=== PATIENT | female | born 1985 | race Caucasian/White ===

== ENCOUNTER 2020-12-08 06:15 | Emergency (ER) | payer SELFPAY ==
--- NOTE | ~2020-12-08 | CT_ITS ---
EXAMINATION: CT abdomen pelvis wo con DATE: 12/08/2020 07:44 INDICATION: Right flank pain TECHNIQUE: Computed tomography (CT) of the abdomen and pelvis was performed without intravenous contr ast. The dose-length product was 1611.21 mGy-cm. Automated exposure control and iterative reconstruct ion technique were employed. COMPARISON: None. FINDINGS: Lung bases are unremarkable. Heart size normal. No significant pleural or pericardial effus ion. There is mild nonspecific asymmetric perinephric stranding on the right. There is mild prominence of the right renal pelvis with periureteral stranding. There is a possible 1 mm distal right ureteral st one, image 173. The liver, spleen, pancreas, adrenal glands and left kidney are unremarkable. Small fat-containing um bilical hernia. The bladder is present. No significant vascular abnormality. No lymphadenopathy. IMPRESSION: 1. Asymmetric mild right perinephric and periureteral stranding. Possible small 1 mm distal right ure teral stone, image 173. Cannot exclude ascending urinary tract infection/pyelonephritis. Reviewed, dictated and finalized at location A. SFER MAN IMPRESSION: 1. Asymmetric mild right perinephric and periureteral stranding. Possible small 1 mm distal right ureteral stone, image 173. Cannot exclude ascending urinary tract infection/pyelonephritis.
[2020-12-08 06:17] VITALS: BP 169/104; PULSE 102; RESP 16; TEMP 36.8; O2SAT 100
[2020-12-08] MEDS: KETOROLAC 30 MG/ML VIAL (*BKC) IV PUSH (06:46)
[2020-12-08] MEDS: ONDANSETRON INJ 4 MG/2 ML VIAL IV PUSH (06:46)
[2020-12-08] MEDS: SODIUM CHLORIDE 0.9% IV 1,000 ML 999 ML IV CONT (06:46)
[2020-12-08 07:03] LABS: Basophils Absolute Auto 0.1 K/mm3 (0.0-0.1); Basophils Percent Auto 0.5 % (0.2-1.2); Eosinophils Absolute Auto 0.2 K/mm3 (0-0.3); Eosinophils Percent Auto 2.2 % (0-4.4); Hematocrit 41.1 % (37.0-47.0); Hemoglobin 13.3 g/dL (12.0-15.0); Immature Granulocyte Absolute 0.09 K/mm3 (0.00-0.031); Immature Granulocyte Percent A 0.9 % (0-0.5); Lymphocytes Absolute Auto 2.28 K/mm3 (0.9-3.2); Lymphocytes Percent Auto 23.5 % (18.3-44.2); Mean Corpuscular HGB Conc 32.4 g/dl (32-36); Mean Corpuscular Hemoglobin 30.4 pg (26-34); Mean Corpuscular Volume 93.8 fl (80-100); Monocytes Absolute Auto 0.4 K/mm3 (0.1-0.6); Monocytes Percent Auto 4.1 % (2.6-8.5); Neutrophils Absolute Auto 6.7 K/mm3 (1.3-6.7); Neutrophils Percent Auto 68.8 % (45.5-73.1); Platelet Count Result 244 k/mm3 (150-375); Red Blood Count 4.38 M/mm3 (4.2-5.4); Red Cell Distribution Width 13.4 % (11.5-14.5); White Blood Count 9.7 K/mm3 (4.5-10.0)
[2020-12-08 07:09] LABS: Add Urine Microscopic? YES; Appearance Urine Cloudy (Clear); Bacteria Urine Trace /hpf; Bilirubin Urine Negative (Negative); Blood Urine 3+ (Negative); Calcium Oxalate Crystals Urine Many /hpf; Color Urine Yellow (Yellow); Glucose Urine UA Negative (Negative); Ketones Urine Negative (Negative); Leukocyte Esterase Ur 1+ LEU/UL (Negative); Mucus Urine Few /lpf; Nitrate Urine Negative (Negative); Protein Urine 1+ mg/dL (Negative); Specific Grav Ur 1.034 (1.001-1.035); Squamous Epithelial Cell Urine Many /hpf (Few)
--- NOTE | 2020-12-08 07:12 | ED.GENADULT ---
HPI - General Adult General Chief complaint: Back Pain/Injury Stated complaint: back pain Time Seen by Provider: 12/08/20 07:05 Source: patient Limitations: no limitations History of Present Illness HPI narrative: Patient is a 35 y/o female complaining of right back pain starting approximately 3 hours ago when she woke up. She describes her pain as sharp and burning. Her pain radiates to right lower abdomen. She rates her pain as 9/10 initially and 7/10 right now. She states that pain medication she received upon arrival helped with her pain. She has nausea and vomiting, but no diarrhea. She also feels like she can't urinate. Related Data Allergies Allergy/AdvReac Type Severity Reaction Status Date / Time No Known Allergies Allergy Mild Verified 12/08/20 06:39 Review of Systems Constitutional: Constitutional: Denies chills, Denies fever(s), Denies headache(s) and Denies weakness Eyes: Eyes: Denies blurry vision ENT: Denies headache(s) and Denies neck pain Cardiovascular: Cardiovascular: Denies chest pain and Denies dyspnea Respiratory: Respiratory: Denies cough and Denies dyspnea Gastrointestinal: Gastrointestinal: Denies abdominal pain, Denies diarrhea, Reports nausea and Reports vomiting Genitourinary: Genitourinary: Reports as per HPI, Denies hematuria, Reports urinary frequency, Denies dysuria and Reports flank pain Musculoskeletal: Musculoskeletal: Denies back pain and Denies neck pain Neurologic: Denies headache(s) and Denies weakness PMF Family History Family History Father Family history of malignant neoplasm of stomach, Onset Age: 52 Family history of malignant neoplasm of esophagus, Onset Age: 52 Grandparent Carcinoma of colon, Onset Age: 80 Social History Social History Smoking status: Never smoker Alcohol intake: current Exam Const: General: no acute distress and well developed Orientation/consciousness: oriented to person, oriented to place, oriented to time and patient oriented x3 HENMT: Head: normocephalic Ears: external ears normal General nose exam: Normal external nose present Eyes: General: appearance normal, both eyes and all related structures Conjunctivae: conjunctivae normal Neck: Neck: normal visual inspection and full ROM Chest: Chest palpation & inspection: normal inspection of the chest and no tenderness Resp: Effort & Inspection: normal respiratory effort Auscultation: clear to auscultation bilaterally Cardio: Rate: regular rate Rhythm: regular rhythm GI: GI Palp: No abdominal tenderness and Yes Soft to palpation Skin: General skin exam: normal color and turgor normal Neuro: General: oriented to person, oriented to place, oriented to time and patient oriented x3 Cognition (Neuro): normal cognition Extrem: General: normal to inspection, full ROM and no pedal edema Psych: Appearance: grossly normal Mental Status: mental status grossly normal Affect: normal affect Course Vital Signs Vital signs: Vital Signs Temperature 36.8 C 12/08/20 06:17 Pulse Rate 102 H 12/08/20 06:17 Respiratory Rate 16 12/08/20 06:17 Blood Pressure 169/104 H 12/08/20 06:17 Pulse Oximetry 100 12/08/20 06:17 Temperature 36.8 C 12/08/20 06:17 Pulse Rate 84 12/08/20 09:25 Respiratory Rate 20 12/08/20 09:25 Blood Pressure 136/89 12/08/20 09:25 Pulse Oximetry 100 12/08/20 09:25 Medical Decision Making Vital Signs Vital Signs: Vital Signs Temperature 36.8 C 12/08/20 06:17 Pulse Rate 102 H 12/08/20 06:17 Respiratory Rate 16 12/08/20 06:17 Blood Pressure 169/104 H 12/08/20 06:17 Pulse Oximetry 100 12/08/20 06:17 Temperature 36.8 C 12/08/20 06:17 Pulse Rate 84 12/08/20 09:25 Respiratory Rate 20 12/08/20 09:25 Blood Pressure 136/89 12/08/20 09:25 Pulse Oximetry 100 12/08/20 09:25 Lab Data Result shaun
[2020-12-08 07:16] LABS: Alanine Aminotransferase 31 U/L (4-35); Albumin Level 4.2 g/dL (3.5-5.1); Alkaline Phosphatase 58 U/L (38-126); Anion Gap 9 mmol/L (8-16); Aspartate Amino Transferase 20 U/L (14-36); Bilirubin,Total 0.7 mg/dL (0.2-1.3); Blood Urea Nitrogen 15 mg/dL (7-17); Calcium 9.5 mg/dL (8.4-10.2); Carbon Dioxide 25 mmol/L (22-30); Chloride 105 mmol/L (98-107); Estimated CRCL calculation 98 ml/min; Estimated Glomerular Filt Rate > 60; Glucose 149 mg/dL (65-105); Potassium 4.3 mmol/L (3.4-5.0); Sodium 139 mmol/L (137-145)
[2020-12-08] MEDS: MORPHINE SULFATE (*CRX) 4 MG/ML INJ IV PUSH ×2 (07:17→08:40)
[2020-12-08 08:02] VITALS: BP 136/89; PULSE 84; RESP 20; O2SAT 100
[2020-12-08 09:25] VITALS: BP 136/89; PULSE 84; RESP 20; O2SAT 100
== END 2020-12-08 09:30 | disposition home or self-care (01) ==
PROVIDERS: Emergency Medicine; Emergency Provider Emergency Medicine; PCP Family Medicine
DX: N20.1 Calculus of ureter (principal)
CPT/HCPCS: 36415; 74176; 80053; 81001; 81025; 85025; 87086; 87088; 96361; 96374; 96375; 96376; 99284; J1885; J2270; J2405; J7030

== ENCOUNTER 2021-05-31 13:56 | Inpatient (IN) | payer OTHER, SELFPAY ==
--- NOTE | ~2021-05-31 | XR_ITS ---
EXAMINATION: XR chest 1V portable INDICATION: Shortness of breath, COVID 19 positive TECHNIQUE: Portable AP chest at 1413 hours COMPARISON: None available FINDINGS: There are diffuse interstitial and airspace opacities throughout all lung zones. No pleural effusion or pneumothorax is identified. The cardiomediastinal silhouette is normal. The visualized o sseous structures are unremarkable IMPRESSION: 1. Diffuse lung disease, consistent with pulmonary edema and/or pneumonia. Reviewed, dictated and finalized at location A.
--- NOTE | 2021-05-31 13:57 | ECG_ITS ---
Measurements Intervals Virgil Rate: 89 P: 45 FL: 131 QRS: 31 QRSD: 95 T: 26 QT: 357 QTc: 435 Interpretive Statements SINUS RHYTHM INCOMPLETE RIGHT BUNDLE BRANCH BLOCK BASELINE ARTIFACT- II, III, AVF BORDERLINE ECG Electronically Signed On 05-31-2021 20:54:37 CDT by Ceasar Burr D.O.
[2021-05-31 14:02] VITALS: BP 150/95; PULSE 93; RESP 20; TEMP 36.7; O2SAT 96
[2021-05-31 14:05] VITALS: PULSE 94
[2021-05-31 14:26] LABS: Basophils Percent Auto 0.3 % (0.2-1.2); Hematocrit 42.9 % (37.0-47.0); Hemoglobin 13.8 g/dL (12.0-15.0); Immature Granulocyte Absolute 0.15 K/mm3 (0.00-0.031); Immature Granulocyte Percent A 2.5 % (0-0.5); Mean Corpuscular HGB Conc 32.2 g/dl (32-36); Mean Corpuscular Hemoglobin 29.3 pg (26-34); Mean Corpuscular Volume 91.1 fl (80-100); Mean Platelet Volume 10.2 fl (7.4-10.4); Monocytes Absolute Auto 0.2 K/mm3 (0.1-0.6); Monocytes Percent Auto 3.6 % (2.6-8.5); Neutrophils Absolute Auto 4.3 K/mm3 (1.3-6.7); Neutrophils Percent Auto 70.6 % (45.5-73.1); Platelet Count Result 276 k/mm3 (150-375); Red Blood Count 4.71 M/mm3 (4.2-5.4); Red Cell Distribution Width 13.6 % (11.5-14.5); White Blood Count 6.1 K/mm3 (4.5-10.0)
[2021-05-31 14:30] LABS: Base Excess ABG 1.1 mEq/l (+/-2.0); Fractional Inspired Oxygen 21 %; HCO3 ABG 25.3 mEq/l (22.0-26.0); Oxygen Content ABG 19.1 %vol (16.0-22.0); Oxygen Saturation ABG 94.5 % (95.0-100.0); Oxyhemoglobin 93.9 % THb (90.0-100.0); PCO2 ABG 38.7 mmHg (35.0-45.0); PO2 ABG 69.4 mmHg (80.0-100.0); Total Hemoglobin 14.5 g/dL (12.0-18.0); pH ABG 7.433 (7.350-7.450)
[2021-05-31 14:31] VITALS: PULSE 93; RESP 27; O2SAT 94
[2021-05-31 14:31] LABS: Device ROOM AIR; Modified Allen's Test Pass; Site Drawn LEFT RADIAL
[2021-05-31 14:35] LABS: Alanine Aminotransferase 89 U/L (4-35); Albumin Level 4.5 g/dL (3.5-5.1); Alkaline Phosphatase 67 U/L (38-126); Anion Gap 13 mmol/L (8-16); Aspartate Amino Transferase 57 U/L (14-36); Bilirubin,Total 0.8 mg/dL (0.2-1.3); Blood Urea Nitrogen 12 mg/dL (7-17); Calcium 9.7 mg/dL (8.4-10.2); Carbon Dioxide 22 mmol/L (22-30); Chloride 106 mmol/L (98-107); Estimated CRCL calculation 187 ml/min; Estimated Glomerular Filt Rate > 60; Glucose 108 mg/dL (65-105); Potassium 4.5 mmol/L (3.4-5.0); Sodium 141 mmol/L (137-145)
[2021-05-31 15:18] LABS: D Dimer 0.43 ug/mL (<0.48)
[2021-05-31 15:54] LABS: INR 0.9; Prothrombin Time 11.9 Seconds (11.1-14.7)
--- NOTE | 2021-05-31 15:55 | ED.SOB ---
HPI - SOB/Dyspnea General Chief Complaint: Shortness of Breath/Dyspnea Stated Complaint: covid + sob Time Seen by Provider: 05/31/21 14:05 Source: patient and RN notes reviewed Mode of arrival: ambulatory Limitations: no limitations History of Present Illness HPI Narrative: Patient is 36 years old white female, morbidly obese presents with [id number] infection. In the form of, fever, headache, sore throat, trouble breathing, body aches started 2 weeks ago. Patient was tested positive for COVID-19 on May 19. Lately the shortness of breath is getting worse. Patient denies any nausea, vomiting, diarrhea, constipation, abdominal pain or chest pain. Patient does not smoke. Related Data Home Medications Medication Instructions Recorded Confirmed azithromycin 05/31/21 benzonatate mg PO 05/31/21 budesonide-formoterol [Symbicort] 2 puff INHALATION Q12H 05/31/21 methylprednisolone mg 05/31/21 Allergies Allergy/AdvReac Type Severity Reaction Status Date / Time No Known Allergies Allergy Mild Verified 05/31/21 14:06 Review of Systems Review of Systems: Narrative: CONSTITUTIONAL: Denies fever, chills, or sweats. EYES: Denies visual changes, redness, or discharge. ENT: Denies rhinorrhea, congestion, sore throat, or otalgia. CARDIOVASCULAR: Denies chest pain, palpitations, or edema. RESPIRATORY: Denies cough or dyspnea. GASTROINTESTINAL: Denies abdominal pain, nausea, vomiting, or diarrhea. GENITOURINARY: Denies dysuria or hematuria. SKIN: Denies rash or itching. MUSCULOSKELETAL: Denies back pain, joint pain, or myalgia. NEUROLOGIC: Denies headache, numbness, or weakness. PSYCHIATRIC: Denies anxiety or depression. [facility] Family History Family History Father Family history of malignant neoplasm of stomach, Onset Age: 52 Family history of malignant neoplasm of esophagus, Onset Age: 52 Grandparent Carcinoma of colon, Onset Age: 80 Social History Social History Smoking status: Never smoker Alcohol intake: current Gender identity (if verbalized by the patient): Female Exam Narrative: Exam Narrative: General appearance: Well-developed, well-nourished Skin: Normal color Head: Normocephalic, nontraumatic Eyes: Clear conjunctiva ENT: Oropharynx normal, ears normal, nose normal Neck: Supple, nontender Chest and respiratory: Airway patent, no respiratory distress, no accessory muscle use, mild diminution of air entry bilaterally with wet rales Heart: Regular rate/rhythm Abdomen: Soft, nontender, no organomegaly, quiet bowel sounds Vascular: Normal peripheral pulses, normal capillary refill. Musculoskeletal: Normal range of motion, nontender back Neurologic: Alert and oriented ?3, [employer] is normal as tested, no gross motor deficit Course Course Emergency Course: Stable Vital Signs Vital signs: Vital Signs Temperature 36.7 C 05/31/21 14:02 Pulse Rate 93 05/31/21 14:02 Respiratory Rate 20 05/31/21 14:02 Blood Pressure 150/95 H 05/31/21 14:02 Pulse Oximetry 96 05/31/21 14:02 Temperature 36.7 C 05/31/21 14:02 Pulse Rate 93 05/31/21 14:31 Respiratory Rate 27 H 05/31/21 14:31 Blood Pressure 150/95 H 05/31/21 14:02 Pulse Oximetry 94 05/31/21 14:31 MDM - SOB/Dyspnea MDM Narrative Medical decision making narrative: COVID-19 infection complication is my concern. Labs, chest x-ray ordered. Further plan to follow Differential Diagnosis Differential diagnosis: Likely other (COVID-19 infection, pneumonia, hypoxia, pulmonary embolism) Lab Data Result diagrams: 05/31/21 14:20 05/31/21 1
[2021-05-31 16:11] VITALS: BP 140/102; PULSE 84; RESP 18; O2SAT 98
[2021-05-31] MEDS: REMDESIVIR 200 MG/NS 250 ML 200 MG/250 ML BAG 250 MG IVPB (16:53)
[2021-05-31 17:33] VITALS: BP 127/47; PULSE 69; RESP 15; O2SAT 100
--- NOTE | 2021-05-31 18:05 | PC.NURSE ---
This patient, Slime Barfield, was admitted to [facility] Surg Room 312-01. Patient/family oriented to hospital policies and general routines including ID bracelet, bed and alarms, visiting hours, pain management, procedures, bathroom and other care routines, personal items, smoking policy, room service/diet, and visiting hours. Information on how to activate the Rapid Response Team has been discussed. Patient/Family are encouraged to report perceived risks to care and to ask questions if they do not understand what they are told or what they should do.
[2021-05-31 19:49] LABS: Alanine Aminotransferase 76 U/L (4-35); Estimated CRCL calculation 138 ml/min; Estimated Glomerular Filt Rate > 60
[2021-05-31 20:00] VITALS: BP 138/72; PULSE 96; RESP 18; TEMP 36.9; O2SAT 92
--- NOTE | 2021-05-31 20:02 | PM.IMHP ---
H&P: HPI History of Present Illness Date/Time: 05/31/21 20:02 This is a 36-year-old female patient who tested positive for COVID-19 10 days ago. Her son was positive and then before she had symptoms she tested positive. The patient stated that she became more short of breath this past and she called her primary care doctor and was started on a Medrol Dosepak. The patient stated she took 6 the 1st day and then took some yesterday and only took 1 dose today. The patient is very short of breath with exertion. She has had fever and it broke 2 days ago. The patient is very fatigued. She is also complaining of some lower back pain which she states is chronic. She tells me she has a history of asthma as well. Chest x-ray was read as diffuse lung disease consistent with pulmonary edema and/or pneumonia. Patient was given REMesivir and Decadron was ordered. The patient is currently satting 100%. Initially she was 96-94%. She is currently on room air. However the patient is very short of breath with minimal exertion. The patient is admitted to inpatient services on the date of service of 05/31/2021. Chief Complaint: sob Review of Systems Review of Systems: All systems reviewed & are unremarkable except as noted in HPI and below Constitutional: Constitutional: Reports as per HPI and Reports no additional constitutional complaints Eyes: Eyes: Reports as per HPI and Reports no additional eye complaints ENT: Reports system reviewed and no additional complaints, except as documented and Reports Normal hearing present Cardiovascular: Cardiovascular: Reports no additional cardiovascular complaints Respiratory: Respiratory: Reports no additional respiratory complaints and Reports no additional respiratory complaints Gastrointestinal: Gastrointestinal: Reports as per HPI and Reports no additional gastrointestinal complaints Musculoskeletal: Musculoskeletal: Reports no additional musculoskeletal complaints Integumentary/Breasts: Skin/Breast: Reports system reviewed and no additional complaints, except as docu and Reports as per HPI Neurologic: Reports system reviewed and no additional complaints, except as documented, Reports as per HPI and Reports Normal hearing present Psychiatric: Psychiatric: Reports no additional psychiatric complaints and Reports as per HPI Endocrine: Endocrine: Reports no additional endocrine complaints Hematologic/Lymphatic: Hematologic/Lymphatic: Reports no additional hematologic/lymphatic complaints Allergic/Immunologic: Allergic/Immunologic: Reports no additional allergic/immunologic complaints PMFSH Past Medical History Medical History Asthma Surgical History Surgical History H/O right knee surgery MCL repair and ACL repair History of section, classical x1 Family History Family History Father Family history of malignant neoplasm of stomach, Onset Age: 52 Family history of malignant neoplasm of esophagus, Onset Age: 52 Grandparent Carcinoma of colon, Onset Age: 80 Social History Social History (Updated 05/31/21 @ 20:14 by Peggy Snyder NP) Social History: the patient stated she tried smoking in high school but nothing long-term. She does not use any alcohol marijuana or illicit drugs. She desires to have her mom is a durable power divorce attorney for healthcare. The patient is listed as a full code. The patient has 1 child. She is a full code. Smoking status: Never smoker Alcohol intake: former Substance use: never Gender identity (if verbalized by the patient): Female Spiritual care concerns: No Meds Home Medications and Allergies Home Medications Medication Instructions Recorded Confirmed Type benzonatate 200 mg PO PRN PRN 05/31/21 05/31/21 History budesonide-formoterol [Symbico
[2021-05-31] MEDS: MAGNESIUM SULF 2 GM/WATER 50ML 2 GM/50 ML BAG IVPB (21:05)
[2021-05-31] MEDS: guaiFENesin/DEXTROMETHORPHAN 10 ML UDC PO (21:11)
[2021-06-01] VITALS: BP 131/76; PULSE 98; RESP 18; TEMP 36.7; O2SAT 97
[2021-06-01] MEDS: DULoxetine HCL 30 MG CAPSULE.DR PO ×2 (00:32→08:52)
[2021-06-01 04:00] VITALS: BP 131/76; PULSE 99; RESP 18; TEMP 36.9; O2SAT 95
[2021-06-01] MEDS: ALBUTEROL SULFATE (*SP) AEROSOL 1 PUFF 2 PUFF INHALATION ×4 (04:41→21:25)
[2021-06-01 06:12] LABS: Basophils Absolute Auto 0.1 K/mm3 (0.0-0.1); Basophils Percent Auto 0.6 % (0.2-1.2); Eosinophils Percent Auto 0.2 % (0-4.4); Immature Granulocyte Absolute 0.14 K/mm3 (0.00-0.031); Immature Granulocyte Percent A 1.7 % (0-0.5); Lymphocytes Absolute Auto 1.99 K/mm3 (0.9-3.2); Lymphocytes Percent Auto 24.8 % (18.3-44.2); Mean Corpuscular HGB Conc 32.5 g/dl (32-36); Mean Corpuscular Hemoglobin 29.1 pg (26-34); Mean Corpuscular Volume 89.7 fl (80-100); Mean Platelet Volume 9.7 fl (7.4-10.4); Monocytes Absolute Auto 0.6 K/mm3 (0.1-0.6); Neutrophils Absolute Auto 5.2 K/mm3 (1.3-6.7); Neutrophils Percent Auto 64.7 % (45.5-73.1); Platelet Count Result 267 k/mm3 (150-375); Red Blood Count 4.46 M/mm3 (4.2-5.4); Red Cell Distribution Width 13.5 % (11.5-14.5)
[2021-06-01 06:20] LABS: Prothrombin Time 12.7 Seconds (11.1-14.7)
[2021-06-01 06:23] LABS: Alanine Aminotransferase 79 U/L (4-35); Albumin Level 4.1 g/dL (3.5-5.1); Alkaline Phosphatase 68 U/L (38-126); Anion Gap 12 mmol/L (8-16); Aspartate Amino Transferase 52 U/L (14-36); Bilirubin,Total 0.6 mg/dL (0.2-1.3); Blood Urea Nitrogen 16 mg/dL (7-17); Calcium 9.2 mg/dL (8.4-10.2); Carbon Dioxide 25 mmol/L (22-30); Chloride 104 mmol/L (98-107); Estimated CRCL calculation 138 ml/min; Estimated Glomerular Filt Rate > 60; Glucose 134 mg/dL (65-105); Sodium 141 mmol/L (137-145)
[2021-06-01 06:26] LABS: Lactic Acid Reflex 1.5 mmol/L (0.7-2.1)
[2021-06-01 08:00] VITALS: BP 139/82; PULSE 100; RESP 16; TEMP 36.2; O2SAT 91; O2SAT 95
[2021-06-01] MEDS: DEXAMETHASONE 2 MG TABLET 6 MG PO (08:50)
[2021-06-01] MEDS: ENOXAPARIN 40 MG/0.4 ML SYRINGE SUB-Q (08:51)
[2021-06-01] MEDS: guaiFENesin/DEXTROMETHORPHAN 10 ML UDC PO (08:52)
[2021-06-01 12:00] VITALS: BP 144/91; PULSE 98; RESP 16; TEMP 36.3; O2SAT 97
--- NOTE | 2021-06-01 12:49 | PM.IMPN ---
Progress Note: A&P Assessment and Plan (1) 2019 novel coronavirus-infected pneumonia (NCIP): Code(s): U07.1 - COVID-19; J12.82 - Pneumonia due to coronavirus disease 2019 Status: Acute Assessment and Plan: Continue with Decadron and REMesivir . The patient is on room air. SUPPORTIVE CARE (2) Asthma: Code(s): J45.909 - Unspecified asthma, uncomplicated Status: Chronic Assessment and Plan: patient was started on a albuterol inhaler. NOT ACTIVELY WHEEZING Subjective Date/time seen: 06/01/21 12:49 I FEEL OKAY Review of Systems Review of Systems: All systems reviewed & are unremarkable except as noted in HPI and below Constitutional: Constitutional: Reports as per HPI and Reports no additional constitutional complaints Eyes: Eyes: Reports as per HPI and Reports no additional eye complaints ENT: Reports system reviewed and no additional complaints, except as documented and Reports Normal hearing present Cardiovascular: Cardiovascular: Reports no additional cardiovascular complaints Respiratory: Respiratory: Reports no additional respiratory complaints and Reports no additional respiratory complaints Gastrointestinal: Gastrointestinal: Reports as per HPI and Reports no additional gastrointestinal complaints Musculoskeletal: Musculoskeletal: Reports no additional musculoskeletal complaints Integumentary/Breasts: Skin/Breast: Reports system reviewed and no additional complaints, except as docu and Reports as per HPI Neurologic: Reports system reviewed and no additional complaints, except as documented, Reports as per HPI and Reports Normal hearing present Psychiatric: Psychiatric: Reports no additional psychiatric complaints and Reports as per HPI Endocrine: Endocrine: Reports no additional endocrine complaints Hematologic/Lymphatic: Hematologic/Lymphatic: Reports no additional hematologic/lymphatic complaints Allergic/Immunologic: Allergic/Immunologic: Reports no additional allergic/immunologic complaints Exam Const: General: cooperative, comfortable, no acute distress, well developed, alert, awake and Physically active Nutritional Appearance: obese morbidly obese Orientation/consciousness: oriented to person, oriented to place, oriented to time and patient oriented x3 Limitations: no limitations HENMT: Head: normal to inspection, No palpable skull fracture present, normocephalic and atraumatic Ears: hearing grossly normal bilaterally and external ears normal General nose exam: Normal external nose present and Normal nares present Eyes: General: appearance normal, both eyes and all related structures Alignment and Position: alignment normal Periorbital: periorbital findings normal Eyelids: eyelids normal Conjunctivae: conjunctivae normal Sclera: sclerae normal Cornea: corneas normal Pupils: Equal, round and reactive pupils present EOM: EOMs intact bilaterally Neck: Neck: normal visual inspection and full ROM Chest: Chest palpation & inspection: normal inspection of the chest Resp: Effort & Inspection: normal respiratory effort Auscultation: clear to auscultation bilaterally Percussion: percussion normal Cardio: Palpation: normal PMI Rate: regular rate Rhythm: regular rhythm Heart sounds: S1 normal heart sound present and S2 normal heart sound present Peripheral pulses: Peripheral pulses 2+ throughout GI: Inspection: normal to inspection Auscultation: normal bowel sounds Rectal Exam: deferred Skin: General skin exam: normal color Lesions: no lesions Rashes: no rashes Trauma: no lacerations or abrasions Wounds: no wounds Hair: normal Nails: normal Neuro: General: oriented to person, oriented to place, oriented to time and patient oriented x3 Cranial nerves: Yes Equal, round and reactive pupils present and Yes Normal hearing present Cognition (Neuro): normal cognition Speech: normal speech Sensory Exam: normal sensation Extrem: General: normal to i
[2021-06-01 16:00] VITALS: BP 151/90; PULSE 114; RESP 20; TEMP 36.5; O2SAT 98
[2021-06-01 20:00] VITALS: BP 145/88; PULSE 94; RESP 20; TEMP 36.2; O2SAT 97
[2021-06-01] MEDS: REMDESIVIR 100 MG/NS 250 ML 100 MG/250 ML BAG 250 MG IVPB (21:25)
[2021-06-02] VITALS (7 sets, daily range): BP systolic 126–147; BP diastolic 72–84; PULSE 79–98; RESP 16–20; TEMP 36–37.2; O2SAT 96–99
[2021-06-02] MEDS: ACETAMINOPHEN 500 MG TABLET 1000 MG PO (00:02)
[2021-06-02] MEDS: ALBUTEROL SULFATE (*SP) AEROSOL 1 PUFF 2 PUFF INHALATION ×4 (01:58→20:06)
[2021-06-02] MEDS: ALPRAZolam (*CRX) 0.5 MG TABLET PO (02:13)
[2021-06-02 06:25] LABS: Prothrombin Time 13.1 Seconds (11.1-14.7)
[2021-06-02 06:26] LABS: Alanine Aminotransferase 63 U/L (4-35); Estimated CRCL calculation 159 ml/min; Estimated Glomerular Filt Rate > 60
[2021-06-02] MEDS: ENOXAPARIN 40 MG/0.4 ML SYRINGE SUB-Q (10:28)
[2021-06-02] MEDS: DEXAMETHASONE 2 MG TABLET 6 MG PO (10:29)
--- NOTE | 2021-06-02 12:14 | PM.IMPN ---
Progress Note: A&P Assessment and Plan (1) 2019 novel coronavirus-infected pneumonia (NCIP): Code(s): U07.1 - COVID-19; J12.82 - Pneumonia due to coronavirus disease 2019 Status: Acute Assessment and Plan: Continue with Decadron and REMesivir . The patient is on room air. SUPPORTIVE CARE iNCENTIVE SPIROMETRY + CAPELLA (2) Asthma: Code(s): J45.909 - Unspecified asthma, uncomplicated Status: Chronic Assessment and Plan: patient was started on a albuterol inhaler. NOT ACTIVELY WHEEZING IMPROVED Subjective Date/time seen: 06/02/21 12:14 I FEEL BETTER Review of Systems Review of Systems: All systems reviewed & are unremarkable except as noted in HPI and below Constitutional: Constitutional: Reports as per HPI and Reports no additional constitutional complaints Eyes: Eyes: Reports as per HPI and Reports no additional eye complaints ENT: Reports system reviewed and no additional complaints, except as documented and Reports Normal hearing present Cardiovascular: Cardiovascular: Reports no additional cardiovascular complaints Respiratory: Respiratory: Reports no additional respiratory complaints and Reports no additional respiratory complaints Gastrointestinal: Gastrointestinal: Reports as per HPI and Reports no additional gastrointestinal complaints Musculoskeletal: Musculoskeletal: Reports no additional musculoskeletal complaints Integumentary/Breasts: Skin/Breast: Reports system reviewed and no additional complaints, except as docu and Reports as per HPI Neurologic: Reports system reviewed and no additional complaints, except as documented, Reports as per HPI and Reports Normal hearing present Psychiatric: Psychiatric: Reports no additional psychiatric complaints and Reports as per HPI Endocrine: Endocrine: Reports no additional endocrine complaints Hematologic/Lymphatic: Hematologic/Lymphatic: Reports no additional hematologic/lymphatic complaints Allergic/Immunologic: Allergic/Immunologic: Reports no additional allergic/immunologic complaints Exam Const: General: cooperative, comfortable, no acute distress, well developed, alert, awake and Physically active Nutritional Appearance: obese morbidly obese Orientation/consciousness: oriented to person, oriented to place, oriented to time and patient oriented x3 Limitations: no limitations HENMT: Head: normal to inspection, No palpable skull fracture present, normocephalic and atraumatic Ears: hearing grossly normal bilaterally and external ears normal General nose exam: Normal external nose present and Normal nares present Eyes: General: appearance normal, both eyes and all related structures Alignment and Position: alignment normal Periorbital: periorbital findings normal Eyelids: eyelids normal Conjunctivae: conjunctivae normal Sclera: sclerae normal Cornea: corneas normal Pupils: Equal, round and reactive pupils present EOM: EOMs intact bilaterally Neck: Neck: normal visual inspection and full ROM Chest: Chest palpation & inspection: normal inspection of the chest Resp: Effort & Inspection: normal respiratory effort Auscultation: clear to auscultation bilaterally Percussion: percussion normal Cardio: Palpation: normal PMI Rate: regular rate Rhythm: regular rhythm Heart sounds: S1 normal heart sound present and S2 normal heart sound present Peripheral pulses: Peripheral pulses 2+ throughout GI: Inspection: normal to inspection Auscultation: normal bowel sounds Rectal Exam: deferred Skin: General skin exam: normal color Lesions: no lesions Rashes: no rashes Trauma: no lacerations or abrasions Wounds: no wounds Hair: normal Nails: normal Neuro: General: oriented to person, oriented to place, oriented to time and patient oriented x3 Cranial nerves: Yes Equal, round and reactive pupils present and Yes Normal hearing present Cognition (Neuro): normal cognition Speech: normal speech Sensory Exam: norm
[2021-06-02] MEDS: REMDESIVIR 100 MG/NS 250 ML 100 MG/250 ML BAG 250 MG IVPB (22:25)
[2021-06-02] MEDS: DULoxetine HCL 30 MG CAPSULE.DR PO (22:25)
[2021-06-03] MEDS: ALBUTEROL SULFATE (*SP) AEROSOL 1 PUFF 2 PUFF INHALATION ×4 (02:15→20:13)
[2021-06-03 05:59] LABS: Alanine Aminotransferase 50 U/L (4-35); Estimated CRCL calculation 159 ml/min; Estimated Glomerular Filt Rate > 60
[2021-06-03 06:00] VITALS: BP 127/73; PULSE 81; RESP 18; TEMP 35.8; O2SAT 99
[2021-06-03 06:03] LABS: INR 0.9; Prothrombin Time 12.5 Seconds (11.1-14.7)
[2021-06-03] MEDS: DEXAMETHASONE 2 MG TABLET 6 MG PO (08:30)
[2021-06-03] MEDS: ENOXAPARIN 40 MG/0.4 ML SYRINGE SUB-Q (08:31)
[2021-06-03 14:00] VITALS: BP 125/72; PULSE 92; RESP 16; TEMP 35.8; O2SAT 97
--- NOTE | 2021-06-03 14:19 | PM.IMPN ---
Progress Note: A&P Assessment and Plan (1) 2019 novel coronavirus-infected pneumonia (NCIP): Code(s): U07.1 - COVID-19; J12.82 - Pneumonia due to coronavirus disease 2019 Status: Acute Assessment and Plan: Continue with Decadron and REMesivir . The patient is on room air. SUPPORTIVE CARE iNCENTIVE SPIROMETRY + CAPELLA IMPROVED (2) Asthma: Code(s): J45.909 - Unspecified asthma, uncomplicated Status: Chronic Assessment and Plan: patient was started on a albuterol inhaler. NOT ACTIVELY WHEEZING IMPROVED Subjective Date/time seen: 06/03/21 14:19 I FEEL MUCH BETTER Review of Systems Review of Systems: All systems reviewed & are unremarkable except as noted in HPI and below Constitutional: Constitutional: Reports as per HPI and Reports no additional constitutional complaints Eyes: Eyes: Reports as per HPI and Reports no additional eye complaints ENT: Reports system reviewed and no additional complaints, except as documented and Reports Normal hearing present Cardiovascular: Cardiovascular: Reports no additional cardiovascular complaints Respiratory: Respiratory: Reports no additional respiratory complaints and Reports no additional respiratory complaints Gastrointestinal: Gastrointestinal: Reports as per HPI and Reports no additional gastrointestinal complaints Musculoskeletal: Musculoskeletal: Reports no additional musculoskeletal complaints Integumentary/Breasts: Skin/Breast: Reports system reviewed and no additional complaints, except as docu and Reports as per HPI Neurologic: Reports system reviewed and no additional complaints, except as documented, Reports as per HPI and Reports Normal hearing present Psychiatric: Psychiatric: Reports no additional psychiatric complaints and Reports as per HPI Endocrine: Endocrine: Reports no additional endocrine complaints Hematologic/Lymphatic: Hematologic/Lymphatic: Reports no additional hematologic/lymphatic complaints Allergic/Immunologic: Allergic/Immunologic: Reports no additional allergic/immunologic complaints Exam Narrative: Exam Narrative: SITTING IN BED Const: General: cooperative, comfortable, no acute distress, well developed, alert, awake and Physically active Nutritional Appearance: obese morbidly obese Orientation/consciousness: oriented to person, oriented to place, oriented to time and patient oriented x3 Limitations: no limitations HENMT: Head: normal to inspection, No palpable skull fracture present, normocephalic and atraumatic Ears: hearing grossly normal bilaterally and external ears normal General nose exam: Normal external nose present and Normal nares present Eyes: General: appearance normal, both eyes and all related structures Alignment and Position: alignment normal Periorbital: periorbital findings normal Eyelids: eyelids normal Conjunctivae: conjunctivae normal Sclera: sclerae normal Cornea: corneas normal Pupils: Equal, round and reactive pupils present EOM: EOMs intact bilaterally Neck: Neck: normal visual inspection and full ROM Chest: Chest palpation & inspection: normal inspection of the chest Resp: Effort & Inspection: normal respiratory effort Auscultation: clear to auscultation bilaterally Percussion: percussion normal Cardio: Palpation: normal PMI Rate: regular rate Rhythm: regular rhythm Heart sounds: S1 normal heart sound present and S2 normal heart sound present Peripheral pulses: Peripheral pulses 2+ throughout GI: Inspection: normal to inspection Auscultation: normal bowel sounds Rectal Exam: deferred Skin: General skin exam: normal color Lesions: no lesions Rashes: no rashes Trauma: no lacerations or abrasions Wounds: no wounds Hair: normal Nails: normal Neuro: General: oriented to person, oriented to place, oriented to time and patient oriented x3 Cranial nerves: Yes Equal, round and reactive pupils present and Yes Normal hearing present Cognition (Neuro):
[2021-06-03 15:04] VITALS: O2SAT 98
[2021-06-03] MEDS: DULoxetine HCL 30 MG CAPSULE.DR PO (20:09)
[2021-06-03] MEDS: guaiFENesin 12 HR 600 MG TABCR 1200 MG PO (20:09)
[2021-06-03] MEDS: ACETAMINOPHEN 500 MG TABLET 1000 MG PO (20:19)
[2021-06-03 21:08] VITALS: O2SAT 98
[2021-06-03 22:00] VITALS: BP 124/71; PULSE 84; RESP 18; TEMP 37.3; O2SAT 96
[2021-06-03] MEDS: REMDESIVIR 100 MG/NS 250 ML 100 MG/250 ML BAG IVPB (22:07)
[2021-06-03] MEDS: HYDROcodone/acetaminophen (*CRX) 5-325 MG TABLET 1 TAB PO (22:55)
[2021-06-04] MEDS: ALBUTEROL SULFATE (*SP) AEROSOL 1 PUFF 2 PUFF INHALATION ×2 (01:11→08:31)
[2021-06-04 05:48] VITALS: BP 136/76; PULSE 80; RESP 18; TEMP 37.1; O2SAT 97
[2021-06-04 06:22] LABS: Alanine Aminotransferase 43 U/L (4-35); Estimated CRCL calculation 159 ml/min; Estimated Glomerular Filt Rate > 60; Prothrombin Time 13.2 Seconds (11.1-14.7)
[2021-06-04] MEDS: DEXAMETHASONE 2 MG TABLET 6 MG PO (08:30)
[2021-06-04] MEDS: guaiFENesin 12 HR 600 MG TABCR 1200 MG PO (08:30)
[2021-06-04] MEDS: ENOXAPARIN 40 MG/0.4 ML SYRINGE SUB-Q (08:30)
--- NOTE | 2021-06-04 11:35 | PM.DS ---
DS: Admitting Diagnosis Admitting Diagnosis Admitting Diagnosis: (1) 2019 novel coronavirus-infected pneumonia (NCIP): Code(s): U07.1 - COVID-19; J12.82 - Pneumonia due to coronavirus disease 2019 Status: Acute Assessment and Plan: Continue with Decadron and REMesivir . Since she has asthma component I gave her magnesium as well. The patient is on room air. (2) Asthma: Code(s): J45.909 - Unspecified asthma, uncomplicated Status: Chronic Assessment and Plan: patient was started on a albuterol inhaler. DS: Discharge Diagnosis Discharge Diagnosis (1) Asthma: Code(s): J45.909 - Unspecified asthma, uncomplicated Status: Chronic Assessment and Plan: STABLE (2) 2019 novel coronavirus-infected pneumonia (NCIP): Code(s): U07.1 - COVID-19; J12.82 - Pneumonia due to coronavirus disease 2019 Status: Acute Assessment and Plan: IMPROVED (3) Ureteral calculus, right: Code(s): N20.1 - Calculus of ureter Status: Acute Assessment and Plan: ASYMPTOMATIC DS: Summary Hospital Course Hospital Course: This is a 36-year-old female patient who tested positive for COVID-19 10 days ago. Her son was positive and then before she had symptoms she tested positive. The patient stated that she became more short of breath this past and she called her primary care doctor and was started on a Medrol Dosepak. The patient stated she took 6 the 1st day and then took some yesterday and only took 1 dose today. The patient is very short of breath with exertion. She has had fever and it broke 2 days ago. The patient is very fatigued. She is also complaining of some lower back pain which she states is chronic. She tells me she has a history of asthma as well. Chest x-ray was read as diffuse lung disease consistent with pulmonary edema and/or pneumonia. Patient was given Remdesivir and Decadron was ordered. The patient is currently satting 100%. Initially she was 96-94%. She is currently on room air. However the patient is very short of breath with minimal exertion. The patient is admitted to inpatient services on the date of service of 05/31/2021 PATIENT WAS TREATED WITH REMDESIVIR AND DEXAMETHASONE INCENTIVE SPIROMETER NO COMPLICATIONS NO CONSULTS NO PROCEDURES Status at Discharge Cognitive/behavioral status at discharge: AAOX3 Functional status at discharge: independent ambulation Overall status at discharge: patient is back to baseline Time Spent with Patient Time attestation: Total time spent providing and/or coordinating discharge services: Exam Narrative: Exam Narrative: SITTING IN BED Const: General: cooperative, comfortable, no acute distress, well developed, alert, awake and Physically active Nutritional Appearance: average body habitus and obese morbidly obese Orientation/consciousness: oriented to person, oriented to place, oriented to time and patient oriented x3 Limitations: no limitations HENMT: Head: normal to inspection, No palpable skull fracture present, normocephalic and atraumatic Ears: hearing grossly normal bilaterally and external ears normal General nose exam: Normal external nose present and Normal nares present Face and sinus: normal facial exam Eyes: General: appearance normal, both eyes and all related structures Alignment and Position: alignment normal Periorbital: periorbital findings normal Eyelids: eyelids normal Conjunctivae: conjunctivae normal Sclera: sclerae normal Cornea: corneas normal Pupils: Equal, round and reactive pupils present EOM: EOMs intact bilaterally Neck: Neck: normal visual inspection, full ROM, no lymphadenopathy and no JVD Thyroid: thyroid normal Lymphatic: no lymphadenopathy noted Chest: Chest palpation & inspection: normal inspection of the chest Resp: Effort & Inspection: normal respiratory effort and able to speak in complete sentences Auscultation: clear t
== END 2021-06-04 12:00 | disposition home or self-care (01) | DRG 137 ==
LOC: ANHED 16:00 → ANH3MEDSUR 06-01 04:09
PROVIDERS: Nurse Practitioner; Admitting Provider Internal Medicine; Emergency Provider Emergency Medicine; PCP Family Medicine; Visit Provider Internal Medicine
DX: U07.1 COVID-19 (principal); J12.82 Pneumonia due to coronavirus disease 2019; J45.909 Unspecified asthma, uncomplicated; N20.1 Calculus of ureter; Z79.899 Other long term (current) drug therapy
CPT/HCPCS: 36415; 36600; 71045; 80053; 82565; 82805; 83605; 83735; 84443; 84460; 85025; 85380; 85610; 93005; 94640; 94667; 96374; 99285; A9270; J1650; J3475; J8540